=== PATIENT | female | born 1970 | race Caucasian/White ===

== ENCOUNTER → 2020-06-26 12:42 | Outpatient (BNVA) | payer OTHER, SELFPAY | PROVIDERS: Visit Provider Emergency Medicine | DX: N39.0 Urinary tract infection, site not specified (principal); R31.9 Hematuria, unspecified | CPT/HCPCS: 81000 ==

== ENCOUNTER 2023-06-04 11:12 | Outpatient (CLI) | payer OTHER, SELFPAY ==
[2023-06-04 13:17] LABS: Alanine Aminotransferase 18 U/L (0-33); Albumin Level 4.5 g/dL (3.5-5.2); Alkaline Phosphatase 49 U/L (35-105); Aspartate Amino Transferase 18 U/L (0-32); Total Bilirubin 0.2 mg/dL (0.15-1.2); Total Protein 6.5 g/dL (6.6-8.7)
[2023-06-04 13:28] LABS: Hepatitis B Surface Antigen Non-Reactive (Nonreactive)
[2023-06-04 13:32] LABS: Hepatitis C Virus Antibody Non-Reactive (Nonreactive)
[2023-06-04 13:36] LABS: Hepatitis B Core AB, Total Non-Reactive (Nonreactive)
[2023-06-04 13:48] LABS: Hepatitis B Surface AB < 3.5 (11.5-1000)
[2023-06-06 16:14] LABS: Quantiferon Mitogen >10.00 IU/mL; Quantiferon Nil 0.07 IU/mL; Quantiferon Plus TB1 0.02 IU/mL; Quantiferon Plus TB2 0.02 IU/mL; Quantiferon TB Gold NEGATIVE (NEGATIVE)
== END 2023-06-04 11:13 | disposition home or self-care (01) ==
PROVIDERS: PCP Family Medicine; Visit Provider Nurse Practitioner Family
DX: L40.59 Other psoriatic arthropathy (principal)
CPT/HCPCS: 80076; 86480; 86704; 86706; 86803; 87340